=== PATIENT | male | born 1980 | race African-American/Black ===

== ENCOUNTER 2016-12-05 15:50 | Emergency (ER) | payer SELFPAY ==
[2016-12-05] MEDS ORDERED: ACETAMINOPHEN 325 MG TABLET ONE (17:10)
[2016-12-05] MEDS ORDERED: ONDANSETRON ODT 4 MG ONE (17:10)
[2016-12-08 13:03] LABS: BLOOD UREA NITROGEN 9 mg/dL (7-18)
== END 2016-12-05 19:08 | disposition home or self-care (01) ==
LOC: ED 15:50
DX: J20.8 Acute bronchitis due to other specified organisms (principal); B96.89 Other specified bacterial agents as the cause of diseases classified elsewhere; F17.200 Nicotine dependence, unspecified, uncomplicated
CPT/HCPCS: 36415; 80048; 82040; 85025